=== PATIENT | male | born 1965 | race Caucasian/White ===

== ENCOUNTER 2023-01-22 08:41 | Inpatient (IN) | payer OTHER ==
[2023-01-22] MEDS ORDERED: Enoxaparin 40 MG/0.4 ML Syringe SUBCUT SCH (09:00)
[2023-01-22 09:16] LABS: BASOPHILS ABSOLUTE AUTO 0.06 K/mm3 (0.01-0.08); BASOPHILS PERCENT AUTO 0.5 % (0.1-1.2); EOSINOPHILS ABSOLUTE AUTO 0.15 K/mm3 (0.04-0.54); EOSINOPHILS PERCENT AUTO 1.2 (0.8-7.0); HEMOGLOBIN 16.3 gm/dl (13.7-17.5); IMMATURE GRAN ABSOLUTE AUTO 0.02 K/mm3 (0.00-0.10); IMMATURE GRAN PERCENT AUTO 0.2 % (<=1.0); LYMPHOCYTES ABSOLUTE AUTO 2.59 K/mm3 (1.32-3.57); LYMPHOCYTES PERCENT AUTO 21.5 % (21.8-53.1); MEAN CORPUSCULAR HEMOGLOBIN 31.7 pg (25.7-32.2); MEAN CORPUSCULAR HGB CONC 34.7 g/dl (32.2-35.5); MEAN CORPUSCULAR VOLUME 91.4 fl (79.0-92.2); MEAN PLATELET VOLUME 8.8 fl (9.4-12.3); MONOCYTES ABSOLUTE AUTO 0.65 K/mm3 (0.30-0.82); MONOCYTES PERCENT AUTO 5.4 % (5.3-12.2); NEUTROPHILS ABSOLUTE AUTO 8.58 K/mm3 (1.78-5.38); NEUTROPHILS PERCENT AUTO 71.2 % (34.0-67.9); PLATELET COUNT,PLT 335 K/mm3 (163-337); RED BLOOD CELL COUNT 5.14 M/mm3 (4.63-6.08); WHITE BLOOD CELL COUNT,WBC 12.05 K/mm3 (4.23-9.07)
[2023-01-22 09:25] LABS: A/G RATIO 1.1 (1-2); ANION GAP 14.2 (5-15); BILIRUBIN TOTAL 0.6 mg/dL (0.2-1.0); BUN/CREATININE RATIO 12.7 (14-18); CALCIUM 9.6 mg/dL (8.5-10.1); CREATININE 1.1 mg/dL (0.7-1.3); EST CRCL DRUG DOSING (CG) 80.34 mL/min; POTASSIUM,K 4.2 mEq/L (3.5-5.1); PROTEIN TOTAL,TP 7.7 g/dl (6.4-8.2)
[2023-01-22] MEDS ORDERED: Iopamidol 755 Mg/ML 100 ML Bottle IVPUSH ONE (10:42)
[2023-01-22] MEDS ORDERED: Sodium Chloride 0.9% 10 ML Syringe FLUSH ONE (10:42)
[2023-01-22] MEDS ORDERED: Sodium Chloride 0.9% 100 ML IV SCH (10:45)
[2023-01-22 10:59] LABS: CHOLESTEROL HDL 38 mg/dL (40-59); CHOLESTEROL LDL DIRECT 168 mg/dL (<100); CHOLESTEROL TOTAL 242 mg/dL (<200); TRIGLYCERIDES 204 mg/dL (<150)
[2023-01-22] MEDS ORDERED: Docusate Sodium 100 MG Cap PO PRN (11:23)
[2023-01-22] MEDS ORDERED: Ondansetron 4 MG/2 ML SDV IV PRN (11:23)
[2023-01-22] MEDS ORDERED: Acetaminophen 325 MG Tab PO PRN (11:23)
[2023-01-22 12:05] LABS: APPEARANCE,URINE CLEAR (Clear); BILIRUBIN,URINE NEGATIVE (Negative); COLOR,URINE YELLOW (Yellow); GLUCOSE,URINE NEGATIVE (Negative); KETONES,URINE NEGATIVE (Negative); LEUKOCYTE ESTERASE,URINE NEGATIVE (Negative); NITRITE,URINE NEGATIVE (Negative); OCCULT BLOOD,URINE NEGATIVE (Negative); PROTEIN,URINE NEGATIVE (Negative); UROBILINOGEN,URINE 0.2 (0.2-1.0)
[2023-01-22 12:05] LABS: INR 0.98; PROTHROMBIN TIME 10.5 SECONDS (9.7-12.0)
[2023-01-22 12:20] LABS: BACTERIA,URINE RARE /hpf (FEW); MUCUS,URINE NOT SEEN /hpf (FEW); RBC,URINE NOT SEEN /hpf (0-5); SQUAMOUS EPITHELIAL CELLS,UR 0-5 /hpf (0-5); WBC,URINE 0-5 /hpf (0-5)
[2023-01-22 12:22] LABS: HEMOGLOBIN A1C 7.7 %
[2023-01-22] MEDS: Clopidogrel 75 MG Tab PO SCH (14:45)
[2023-01-22] MEDS: Aspirin 81 MG Tab.Chew PO SCH (14:45)
[2023-01-22] MEDS: Nicotine 21 MG/24 Hr Patch TRDERM SCH (14:45)
[2023-01-22] MEDS: Insulin Lispro 100 Unit/ML 3 ML KwikPen SUBCUT SCH ×2 (17:30→21:20)
[2023-01-22] MEDS ORDERED: atorvaSTATin 40 MG Tab PO SCH ×2 (21:00)
[2023-01-23 06:06] LABS: BASOPHILS ABSOLUTE AUTO 0.06 K/mm3 (0.01-0.08); BASOPHILS PERCENT AUTO 0.9 % (0.1-1.2); EOSINOPHILS ABSOLUTE AUTO 0.22 K/mm3 (0.04-0.54); EOSINOPHILS PERCENT AUTO 3.3 (0.8-7.0); HEMATOCRIT 45.7 % (40.1-51.0); HEMOGLOBIN 15.5 gm/dl (13.7-17.5); LYMPHOCYTES ABSOLUTE AUTO 2.62 K/mm3 (1.32-3.57); LYMPHOCYTES PERCENT AUTO 39.3 % (21.8-53.1); MEAN CORPUSCULAR HEMOGLOBIN 31.4 pg (25.7-32.2); MEAN CORPUSCULAR HGB CONC 33.9 g/dl (32.2-35.5); MEAN CORPUSCULAR VOLUME 92.5 fl (79.0-92.2); MEAN PLATELET VOLUME 8.9 fl (9.4-12.3); MONOCYTES ABSOLUTE AUTO 0.63 K/mm3 (0.30-0.82); MONOCYTES PERCENT AUTO 9.4 % (5.3-12.2); NEUTROPHILS ABSOLUTE AUTO 3.14 K/mm3 (1.78-5.38); NEUTROPHILS PERCENT AUTO 47.1 % (34.0-67.9); PLATELET COUNT,PLT 301 K/mm3 (163-337); RED BLOOD CELL COUNT 4.94 M/mm3 (4.63-6.08); WHITE BLOOD CELL COUNT,WBC 6.67 K/mm3 (4.23-9.07)
[2023-01-23 06:33] LABS: ANION GAP 13.1 (5-15); BUN/CREATININE RATIO 17.8 (14-18); CALCIUM 9.3 mg/dL (8.5-10.1); CREATININE 0.9 mg/dL (0.7-1.3); EST CRCL DRUG DOSING (CG) 98.2 mL/min; MAGNESIUM 2.3 mg/dL (1.8-2.4); POTASSIUM,K 4.1 mEq/L (3.5-5.1)
[2023-01-23] MEDS: Insulin Lispro 100 Unit/ML 3 ML KwikPen SUBCUT SCH (08:41)
[2023-01-23] MEDS: Clopidogrel 75 MG Tab PO SCH (08:50)
[2023-01-23] MEDS: Aspirin 81 MG Tab.Chew PO SCH (08:50)
[2023-01-23] MEDS: Nicotine 21 MG/24 Hr Patch TRDERM SCH (08:50)
== END 2023-01-23 11:40 | disposition home or self-care (01) | DRG 66 ==
LOC: JD.ED 08:41 → JD.MS 10:30 → OBSVTOIN 12:46
PROVIDERS: ADMIT Internal Medicine; ATTEND Internal Medicine
DX: I63.9 Cerebral infarction, unspecified (principal); I10 Essential (primary) hypertension; E78.5 Hyperlipidemia, unspecified; I65.23 Occlusion and stenosis of bilateral carotid arteries; R29.810 Facial weakness; R47.81 Slurred speech; E11.65 Type 2 diabetes mellitus with hyperglycemia; Z79.82 Long term (current) use of aspirin; Z79.899 Other long term (current) drug therapy; Z88.0 Allergy status to penicillin
CPT/HCPCS: 36415; 70450; 70450-26; 70496; 70496-26; 70498; 70498-26; 70551; 70551-26; 80048; 80053; 80061; 81001; 82044; 82947; 83036; 83735; 85025; 85610; 85730; 93005; 93307; 97110-GO; 97161-GP; 97166-GO; 99285; A9270-GY; J1650; J3490; Q9967

== ENCOUNTER 2025-06-06 10:33 | Emergency (ER) | payer OTHER ==
[2025-06-06] MEDS ORDERED: Sodium Chloride 0.9% 10 ML Syringe FLUSH PRN (11:08)
[2025-06-06] MEDS: Sodium Chloride 0.9% 10 ML Syringe FLUSH PRN (11:57)
[2025-06-06] MEDS: Iopamidol 755 Mg/ML 100 ML Bottle IVPUSH ONE (11:57)
== END 2025-06-06 13:02 | disposition home or self-care (01) ==
LOC: JD.ED 10:33
DX: S22.31XA Fracture of one rib, right side, initial encounter for closed fracture (principal); I10 Essential (primary) hypertension; E78.00 Pure hypercholesterolemia, unspecified; E11.9 Type 2 diabetes mellitus without complications; Z88.0 Allergy status to penicillin; Z79.82 Long term (current) use of aspirin; Z79.84 Long term (current) use of oral hypoglycemic drugs; Z79.899 Other long term (current) drug therapy; W19.XXXA Unspecified fall, initial encounter
CPT/HCPCS: 71260; 99283; Q9967

== ENCOUNTER 2025-06-30 06:49 | Day surgery (SDC) | payer OTHER ==
[~2025-06-30 06:49] MED LIST: Sodium Chloride 0.9% 10 ML Syringe FLUSH PRN; Sodium Chloride 0.9% 10 ML Syringe FLUSH SCH
[2025-06-30] MEDS: Lactated Ringers 1,000 ML IV SCH (07:15)
[2025-06-30] MEDS ORDERED: Midazolam 1 MG/ML 2 ML SDV ONE (07:48)
[2025-06-30] MEDS ORDERED: Lidocaine 1% 6 ML ONE (07:48)
[2025-06-30] MEDS ORDERED: Propofol 200 MG/20 ML SDV ONE ×2 (07:48→08:40)
[2025-06-30] MEDS ORDERED: fentaNYL 100 MCG/2 ML SDV ONE (08:40)
[2025-06-30] MEDS ORDERED: Metoprolol Tartrate 5 MG/5 ML SDV ONE (08:42)
[2025-06-30] MEDS ORDERED: Lactated Ringers 1,000 ML ONE (08:51)
== END 2025-06-30 10:06 | disposition home or self-care (01) ==
LOC: JD.SDS 06:49
PROVIDERS: ATTEND Surgery
DX: Z12.11 Encounter for screening for malignant neoplasm of colon (principal); D12.2 Benign neoplasm of ascending colon; D12.4 Benign neoplasm of descending colon; K62.1 Rectal polyp; K29.80 Duodenitis without bleeding; K25.9 Gastric ulcer, unspecified as acute or chronic, without hemorrhage or perforation; E11.9 Type 2 diabetes mellitus without complications; I25.10 Atherosclerotic heart disease of native coronary artery without angina pectoris; K21.9 Gastro-esophageal reflux disease without esophagitis; E78.00 Pure hypercholesterolemia, unspecified; Z88.0 Allergy status to penicillin; Z79.82 Long term (current) use of aspirin; Z79.899 Other long term (current) drug therapy
CPT/HCPCS: 43239; 45385; C9777; J2003; J2250; J2704; J3010; J3490; J7120; 00813